=== PATIENT | male | born 1980 | race Caucasian/White ===

== ENCOUNTER 2020-06-24 18:13 | Emergency (ER) | payer SELFPAY ==
[~2020-06-24] VITALS: Ht 172.7 cm; Wt 89.8 kg
[2020-06-24 18:18] VITALS: BP 149/68
[2020-06-24] MEDS ORDERED: IBUPROFEN 400 MG TAB PO ONE (18:30)
[2020-06-24] MEDS ORDERED: NAPR-54 PO (19:11)
[2020-06-24 19:21] VITALS: BP 142/70
== END 2020-06-24 19:21 | disposition home or self-care (01) ==
LOC: MED 18:13
DX: S20.212A Contusion of left front wall of thorax, initial encounter (principal); S60.031A Contusion of right middle finger without damage to nail, initial encounter; S30.810A Abrasion of lower back and pelvis, initial encounter; S40.212A Abrasion of left shoulder, initial encounter; Z79.899 Other long term (current) drug therapy; Z98.890 Other specified postprocedural states; V89.2XXA Person injured in unspecified motor-vehicle accident, traffic, initial encounter; Y93.89 Activity, other specified; Y92.89 Other specified places as the place of occurrence of the external cause; Y99.8 Other external cause status
CPT/HCPCS: 71101; 99283